=== PATIENT | female | born 1960 | race Caucasian/White ===

== ENCOUNTER 2025-04-10 00:24 | Inpatient (IN) | payer MEDICAID, OTHER ==
[2025-04-10] VITALS (13 sets, daily range): BP systolic 115–174; BP diastolic 57–80; PULSE 66–77; RESP 17–20; TEMP 35.9–36.9; O2SAT 96–100
[~2025-04-10] VITALS: Ht 162.6 cm; Wt 57.2 kg
[2025-04-10 02:23] LABS: HEMATOCRIT. 29.0 % (42.0-52.0); HEMOGLOBIN. 9.2 g/dL (14.0-18.0); MEAN PLATELET VOLUME 7.8 fl (7.4-10.4); PLATELET 228 x1000/uL (130-400); RED BLOOD CELL COUNT 3.16 mill/uL (4.7-6.1); RED CELL DISTRIBUTION WIDTH 15.7 % (11.6-14.6)
[2025-04-10 02:28] LABS: INR 1.0
[2025-04-10 02:31] LABS: CREATININE 4.9 mg/dL (0.6-1.3)
[2025-04-10 02:32] LABS: UREA NITROGEN BLOOD 47 mg/dL (9-23)
[2025-04-10 02:33] LABS: ASPARTATE AMINOTRANSFERASE 29 IU/L (<34); BILIRUBIN DIRECT 0.1 mg/dL (<=3.0)
[2025-04-10 02:34] LABS: BILIRUBIN TOTAL 0.3 mg/dL (0.1-1.0); PROTEIN TOTAL 7.6 g/dL (6.0-8.3)
[2025-04-10] MEDS: KETOROLAC 15MG/ML VIAL IV ONE (02:38)
[2025-04-10] MEDS: MORPHINE SULFATE 4 MG/ML INJ (FOR IV/IM USE) IV ONE (02:38)
[2025-04-10] MEDS: SODIUM CHLORIDE 0.9% 1,000 ML IV ONE (02:38)
[2025-04-10] MEDS ORDERED: MAGNESIUM/ALUMINUM HYDROXIDE/SIMETHICONE 30ML UDC PO PRN (06:15)
[2025-04-10] MEDS ORDERED: ONDANSETRON HCL 4MG/2ML INJ IV PRN (06:15)
[2025-04-10] MEDS ORDERED: ACETAMINOPHEN 325MG TABLET PO PRN (06:15)
[2025-04-10 08:19] LABS: BAND% 1.0 % (1.0-6.0); EOSINOPHILS % MANUAL 1.0 % (0.0-5.0); LYMPHOCYTES % MANUAL 5.0 % (20.0-50.0); MONOCYTES % MANUAL 3.0 % (2.0-8.0); NEUTROPHILS % MANUAL 90.0 % (45.0-75.0); PLATELET ESTIMATE NORMAL
[2025-04-10 08:38] LABS: HEPATITIS A AB IGM NEGATIVE (Negative); HEPATITIS B CORE AB IGM NEGATIVE (Negative)
[2025-04-10 08:39] LABS: HEPATITIS C AB NON REACTIVE (Neg) (Negative)
[2025-04-10] MEDS: PIPERACILLIN/TAZO 3.375G/50ML 50 ML IV SCH (09:11)
[2025-04-10] MEDS: ENOXAPARIN 30MG/0.3ML SYR SUBCUT SCH (09:11)
[2025-04-10] MEDS: CLONIDINE 0.1MG TABLET PO PRN (09:12)
[2025-04-10] MEDS ORDERED: APIX5TAB MT (15:49)
[2025-04-10] MEDS ORDERED: ACET650S27 ORI (15:50)
[2025-04-10] MEDS ORDERED: AMLO10TA80 MT (15:50)
[2025-04-10] MEDS: ACETAMINOPHEN 325MG TABLET PO PRN (18:28)
[2025-04-11] VITALS (14 sets, daily range): BP systolic 142–169; BP diastolic 57–87; PULSE 69–78; RESP 18–20; TEMP 35.8–37; O2SAT 96–100
[2025-04-11 07:19] LABS: BASOPHILS % 0.5 % (0.0-2.0); EOSINOPHILS % 1.3 % (0.0-5.0); HEMATOCRIT. 29.6 % (42.0-52.0); HEMOGLOBIN. 9.4 g/dL (14.0-18.0); LYMPHOCYTES % 7.3 % (20.0-50.0); MEAN PLATELET VOLUME 8.0 fl (7.4-10.4); MONOCYTES % 4.3 % (2.0-8.0); NEUTROPHILS % 86.6 % (40.0-76.0); PLATELET 209 x1000/uL (130-400); RED BLOOD CELL COUNT 3.18 mill/uL (4.7-6.1); RED CELL DISTRIBUTION WIDTH 15.7 % (11.6-14.6)
[2025-04-11 07:25] LABS: UREA NITROGEN BLOOD 49 mg/dL (9-23)
[2025-04-11 07:29] LABS: ASPARTATE AMINOTRANSFERASE 19 IU/L (<34); PROTEIN TOTAL 7.2 g/dL (6.0-8.3)
[2025-04-11 07:30] LABS: BILIRUBIN DIRECT 0.2 mg/dL (<=3.0); BILIRUBIN TOTAL 0.5 mg/dL (0.1-1.0); PHOSPHORUS 6.1 mg/dL (2.5-4.9)
[2025-04-11 09:06] LABS: CREATININE 5.5 mg/dL (0.6-1.3)
[2025-04-11] MEDS ORDERED: DEXTROSE 50% WATER 50ML SYRINGE IV PRN (11:30)
[2025-04-11] MEDS: BLOOD SUGAR DIAGNOSTIC STRIP TEST SCH (12:10)
[2025-04-11] MEDS: INSULIN LISPRO 100 UNITS/ML SUBCUT SCH (12:40)
[2025-04-11 13:43] LABS: CLARITY URINE CLOUDY (CLEAR); COLOR URINE YELLOW (YELLOW); GLUCOSE URINE 2+ (NEGATIVE); KETONES URINE NEGATIVE (NEGATIVE); LEUKOCYTE ESTERASE URINE NEGATIVE (NEGATIVE); NITRITE URINE NEGATIVE (NEGATIVE); OCCULT BLOOD URINE NEGATIVE (NEGATIVE); PH URINE 6.5 (4.5-8.0); PROTEIN URINE 4+ (NEGATIVE); SPECIFIC GRAVITY URINE 1.021 (1.005-1.030); UROBILINOGEN URINE 0.2 E.U./dL (0.2-1.0)
[2025-04-11 13:52] LABS: *AMPHETAMINES SCREEN URINE NEGATIVE (NEGATIVE); *BARBITURATES SCREEN URINE NEGATIVE (NEGATIVE); *BENZODIAZEPINES SCREEN URINE NEGATIVE (NEGATIVE); *COCAINE SCREEN URINE NEGATIVE (NEGATIVE); CANNABINOID URINE SCREEN NEGATIVE (NEGATIVE); ECSTASY MDMA SCREEN URINE NEGATIVE (NEGATIVE); METHADONE URINE SCREEN NEGATIVE (NEGATIVE); OPIATES URINE SCREEN PRESUMPTIVE POSITIVE (NEGATIVE); PHENCYCLIDINE URINE SCREEN NEGATIVE (NEGATIVE)
[2025-04-11 14:35] LABS: RBC URINE 0-2 /hpf (0-2); SQUAMOUS EPITHELIAL CELL URINE 2+ /lpf (RARE/1+)
[2025-04-11 14:37] LABS: BACTERIA URINE TRACE; YEAST URINE NONE SEEN
[2025-04-11] MEDS: TRAMADOL 50MG TABLET PO PRN (18:47)
[2025-04-12] VITALS: BP 140/60; PULSE 78; RESP 20; TEMP 36.1; O2SAT 100
[2025-04-12 04:00] VITALS: BP 139/60; PULSE 79; RESP 20; TEMP 36.7; O2SAT 100
[2025-04-12 08:17] VITALS: BP 140/75; PULSE 76; RESP 18; TEMP 35.7; O2SAT 99
[2025-04-12 12:00] VITALS: RESP 18; O2SAT 100
[2025-04-12 13:22] LABS: PLATELET 229 x1000/uL (130-400); RED BLOOD CELL COUNT 3.10 mill/uL (4.2-5.4); RED CELL DISTRIBUTION WIDTH 15.8 % (11.6-14.6)
[2025-04-12 13:47] LABS: CREATININE 4.6 mg/dL (0.6-1.0); UREA NITROGEN BLOOD 41.0 mg/dL (9-23)
[2025-04-12 14:42] LABS: TROPONIN I HIGH SENSITIVITY 56 ng/L (3.0-34)
[2025-04-12] MEDS ORDERED: PHENYLEPHRINE HCL 10MG/ML 1ML IV ONE (15:46)
[2025-04-12] MEDS ORDERED: PROPOFOL 200MG/20ML VIAL IV ONE (15:46)
[2025-04-12] MEDS ORDERED: FENTANYL CITRATE/PF 50MCG/ML 2ML VIAL ONE (15:46)
[2025-04-12] MEDS ORDERED: ETOMIDATE 2MG/ML 10ML VIAL IV ONE (15:46)
[2025-04-12] MEDS ORDERED: EPHEDRINE SULFATE 50MG/ML VIAL ONE (15:47)
[2025-04-12] MEDS ORDERED: DEXAMETHASONE 4MG/ML 1ML VIAL ONE (15:47)
[2025-04-12] MEDS ORDERED: LIDOCAINE HCL 1% 10 MG/ML 10ML VIAL ONE (15:47)
[2025-04-12] MEDS ORDERED: ONDANSETRON HCL 4MG/2ML INJ ONE (15:47)
[2025-04-12] MEDS ORDERED: ACETAMINOPHEN 1000MG/100ML 100 ML IV ONE (15:53)
[2025-04-12] MEDS ORDERED: HYDRALAZINE 20MG/ML VIAL IV PRN ×2 (16:00)
[2025-04-12] MEDS ORDERED: LABETALOL 5MG/ML 4ML INJ IV PRN (16:00)
[2025-04-12] MEDS ORDERED: ONDANSETRON HCL 4MG/2ML INJ IV PRN (16:00)
[2025-04-12] MEDS ORDERED: HYDROMORPHONE HCL/PF 1MG/ML INJ IV PRN (16:00)
[2025-04-12] MEDS ORDERED: HYDROMORPHONE HCL/PF 1MG/ML INJ ONE (16:32)
[2025-04-12 20:00] VITALS: BP 150/71; PULSE 79; RESP 18; TEMP 36.1; O2SAT 99
[2025-04-12] MEDS: ASPIRIN 325MG EC TABLET PO SCH (22:08)
[2025-04-12] MEDS: CEFAZOLIN 1000MG PREMIX 50 ML IV SCH (22:28)
[2025-04-13] VITALS (11 sets, daily range): BP systolic 135–175; BP diastolic 41–87; PULSE 65–79; RESP 17–18; TEMP 36.4–36.7; O2SAT 97–100
[2025-04-13] MEDS: MORPHINE SULFATE 4 MG/ML INJ (FOR IV/IM USE) IV PRN (03:12)
[2025-04-13 07:22] LABS: HEMATOCRIT. 29.0 % (36.0-48.0); HEMOGLOBIN. 9.2 g/dL (12.0-16.0); MEAN PLATELET VOLUME 7.7 fl (7.4-10.4); PLATELET 248 x1000/uL (130-400); RED BLOOD CELL COUNT 3.14 mill/uL (4.2-5.4); RED CELL DISTRIBUTION WIDTH 15.3 % (11.6-14.6)
[2025-04-13 07:34] LABS: UREA NITROGEN BLOOD 45.0 mg/dL (9-23)
[2025-04-13 08:06] LABS: CREATININE 5.1 mg/dL (0.6-1.0)
[2025-04-13 16:30] LABS: PLATELET 289 x1000/uL (130-400); RED BLOOD CELL COUNT 2.97 mill/uL (4.2-5.4); RED CELL DISTRIBUTION WIDTH 15.4 % (11.6-14.6)
[2025-04-13 16:53] LABS: TROPONIN I HIGH SENSITIVITY 41 ng/L (3.0-34)
[2025-04-13 20:56] LABS: LYMPHOCYTES % MANUAL 4.0 % (20.0-60.0); MONOCYTES % MANUAL 8.0 % (2.0-8.0); NEUTROPHILS % MANUAL 88.0 % (45.0-75.0); PLATELET ESTIMATE NORMAL
[2025-04-14] VITALS: BP 139/54; PULSE 76; RESP 18; TEMP 36.6; O2SAT 98
[2025-04-14 04:00] VITALS: BP 142/61; PULSE 78; RESP 17; TEMP 36.4; O2SAT 97
[2025-04-14 07:52] LABS: BASOPHILS % 0.6 % (0.0-2.0); EOSINOPHILS % 4.4 % (0.0-5.0); HEMATOCRIT. 27.2 % (36.0-48.0); HEMOGLOBIN. 8.7 g/dL (12.0-16.0); LYMPHOCYTES % 17.2 % (20.0-50.0); MEAN PLATELET VOLUME 7.9 fl (7.4-10.4); MONOCYTES % 8.3 % (2.0-8.0); NEUTROPHILS % 69.5 % (40.0-76.0); PLATELET 271 x1000/uL (130-400); RED BLOOD CELL COUNT 2.95 mill/uL (4.2-5.4); RED CELL DISTRIBUTION WIDTH 15.6 % (11.6-14.6)
[2025-04-14 07:57] LABS: CREATININE 4.6 mg/dL (0.6-1.0)
[2025-04-14 07:58] LABS: UREA NITROGEN BLOOD 41 mg/dL (9-23)
[2025-04-14 08:00] VITALS: BP 159/64; PULSE 66; RESP 20; TEMP 36.4; O2SAT 99
[2025-04-14 08:00] LABS: PHOSPHORUS 5.7 mg/dL (2.5-4.9)
[2025-04-14 12:00] VITALS: BP 143/67; PULSE 76; RESP 19; TEMP 36.4; O2SAT 99
[2025-04-14 16:00] VITALS: BP 138/69; PULSE 78; RESP 20; TEMP 36.3; O2SAT 98
[2025-04-14 20:00] VITALS: BP 158/65; PULSE 69; RESP 20; TEMP 36.4; O2SAT 92
[2025-04-15] VITALS (13 sets, daily range): BP systolic 135–168; BP diastolic 52–85; PULSE 72–78; RESP 16–18; TEMP 36.1–37; O2SAT 96–100
[2025-04-15 06:56] LABS: BASOPHILS % 0.6 % (0.0-2.0); EOSINOPHILS % 4.7 % (0.0-5.0); HEMATOCRIT. 27.2 % (36.0-48.0); HEMOGLOBIN. 8.8 g/dL (12.0-16.0); LYMPHOCYTES % 11.2 % (20.0-50.0); MEAN PLATELET VOLUME 7.6 fl (7.4-10.4); MONOCYTES % 7.0 % (2.0-8.0); NEUTROPHILS % 76.5 % (40.0-76.0); PLATELET 294 x1000/uL (130-400); RED BLOOD CELL COUNT 2.94 mill/uL (4.2-5.4); RED CELL DISTRIBUTION WIDTH 15.4 % (11.6-14.6)
[2025-04-15] MEDS ORDERED: NALOXONE HCL 0.4MG/ML VIAL IV PRN (15:15)
[2025-04-15] MEDS: SEVELAMER CARBONATE 800 MG TABLET PO SCH (18:49)
[2025-04-16] VITALS: BP 140/60; PULSE 77; RESP 18; TEMP 36.7; O2SAT 98
[2025-04-16 04:00] VITALS: BP 163/75; PULSE 71; RESP 18; TEMP 36.1; O2SAT 98
[2025-04-16 08:00] VITALS: BP 158/61; PULSE 71; RESP 18; TEMP 35.9; O2SAT 97
[2025-04-16] MEDS ORDERED: POLYMYXIN B SULFATE 500000 UNITS/VIAL ONE (08:59)
[2025-04-16] MEDS ORDERED: VANCOMYCIN HCL 1GM VIAL ONE (08:59)
[2025-04-16] MEDS ORDERED: FENTANYL CITRATE/PF 50MCG/ML 2ML VIAL ONE (09:03)
[2025-04-16] MEDS ORDERED: PROPOFOL 200MG/20ML VIAL IV ONE (09:04)
[2025-04-16] MEDS ORDERED: MIDAZOLAM HCL 2 MG/2 ML VIAL ONE (09:04)
[2025-04-16] MEDS ORDERED: LABETALOL 5MG/ML 4ML INJ IV PRN (09:45)
[2025-04-16] MEDS ORDERED: HYDRALAZINE 20MG/ML VIAL IV PRN ×2 (09:45)
[2025-04-16] MEDS ORDERED: FAMOTIDINE 20MG/2ML VIAL IV PRN (09:45)
[2025-04-16] MEDS ORDERED: MEPERIDINE HCL/PF 25MG/ML CPJ IV PRN (09:45)
[2025-04-16] MEDS ORDERED: ONDANSETRON HCL 4MG/2ML INJ IV PRN (09:45)
[2025-04-16] MEDS: ACETAMINOPHEN 1,000MG/100ML PREMIX IV PRN (10:04)
[2025-04-16] MEDS: HYDROMORPHONE HCL/PF 1MG/ML INJ IV PRN (10:06)
[2025-04-16 12:00] VITALS: BP 158/75; PULSE 72; RESP 18; TEMP 36.4; O2SAT 99
[2025-04-16 16:00] VITALS: BP 151/69; PULSE 71; RESP 18; TEMP 36.3; O2SAT 98
[2025-04-16 20:00] VITALS: BP 131/53; PULSE 70; RESP 18; TEMP 36.9; O2SAT 97
[2025-04-17] VITALS (11 sets, daily range): BP systolic 125–170; BP diastolic 50–82; PULSE 63–84; RESP 18–20; TEMP 36–36.9; O2SAT 98–100
[2025-04-17 06:30] LABS: CREATININE 4.9 mg/dL (0.6-1.0)
[2025-04-17 06:32] LABS: UREA NITROGEN BLOOD 33.0 mg/dL (9-23)
[2025-04-17] MEDS: TRAMADOL 50MG TABLET PO PRN (06:36)
[2025-04-17 06:48] LABS: BASOPHILS % 0.4 % (0.0-2.0); EOSINOPHILS % 1.6 % (0.0-5.0); HEMATOCRIT. 22.2 % (36.0-48.0); HEMOGLOBIN. 7.1 g/dL (12.0-16.0); LYMPHOCYTES % 8.3 % (20.0-50.0); MEAN PLATELET VOLUME 7.4 fl (7.4-10.4); MONOCYTES % 6.5 % (2.0-8.0); NEUTROPHILS % 83.2 % (40.0-76.0); PLATELET 359 x1000/uL (130-400); RED BLOOD CELL COUNT 2.39 mill/uL (4.2-5.4); RED CELL DISTRIBUTION WIDTH 15.3 % (11.6-14.6)
[2025-04-17] MEDS ORDERED: AMLO10TA80 MT (13:35)
[2025-04-17] MEDS ORDERED: APIX5TAB MT (13:35)
[2025-04-17] MEDS ORDERED: TRAM50TA3 MT (13:35)
[2025-04-17] MEDS: DIPHENHYDRAMINE 25MG CAPSULE PO PRN (16:15)
== END 2025-04-17 19:19 | disposition home health service (06) | DRG 308 ==
LOC: ER 00:24 → EDSEX 04:00 → 8WST 04:00 → EDBEDREQTM 04:16 → EDBEDREQ 04:16 → ENRESERV 14:15 → CANRESERV 14:15
PROVIDERS: ADMIT Student in an Organized Health Care Education/Training Program; ATTEND Student in an Organized Health Care Education/Training Program
PROC: 5A1D70Z Performance of Urinary Filtration, Intermittent, Less than 6 Hours Per Day (ICD-10-PCS; 2025-04-10)
PROC: 5A1D70Z Performance of Urinary Filtration, Intermittent, Less than 6 Hours Per Day (ICD-10-PCS; 2025-04-11)
PROC: 0QS704Z Reposition Left Upper Femur with Internal Fixation Device, Open Approach (ICD-10-PCS; principal; 2025-04-12)
PROC: 5A1D70Z Performance of Urinary Filtration, Intermittent, Less than 6 Hours Per Day (ICD-10-PCS; 2025-04-13)
PROC: 5A1D70Z Performance of Urinary Filtration, Intermittent, Less than 6 Hours Per Day (ICD-10-PCS; 2025-04-15)
PROC: 0QB70ZZ Excision of Left Upper Femur, Open Approach (ICD-10-PCS; 2025-04-16)
PROC: 5A1D70Z Performance of Urinary Filtration, Intermittent, Less than 6 Hours Per Day (ICD-10-PCS; 2025-04-17)
DX: S72.092A Other fracture of head and neck of left femur, initial encounter for closed fracture (principal); J69.0 Pneumonitis due to inhalation of food and vomit; I12.0 Hypertensive chronic kidney disease with stage 5 chronic kidney disease or end stage renal disease; N18.6 End stage renal disease; D64.9 Anemia, unspecified; E11.22 Type 2 diabetes mellitus with diabetic chronic kidney disease; Z99.2 Dependence on renal dialysis; Z79.01 Long term (current) use of anticoagulants; I07.1 Rheumatic tricuspid insufficiency; E87.70 Fluid overload, unspecified; W18.2XXA Fall in (into) shower or empty bathtub, initial encounter; E11.40 Type 2 diabetes mellitus with diabetic neuropathy, unspecified; E11.51 Type 2 diabetes mellitus with diabetic peripheral angiopathy without gangrene; E78.5 Hyperlipidemia, unspecified; S20.412A Abrasion of left back wall of thorax, initial encounter; Q66.70 Congenital pes cavus, unspecified foot; Y93.E1 Activity, personal bathing and showering; Z89.422 Acquired absence of other left toe(s); Z91.119 Patient's noncompliance with dietary regimen due to unspecified reason; Z91.158 Patient's noncompliance with renal dialysis for other reason; Z95.0 Presence of cardiac pacemaker; Y92.89 Other specified places as the place of occurrence of the external cause; Y99.8 Other external cause status
CPT/HCPCS: 36415; 71045; 72170; 72192; 73502; 73630; 73700; 76000; 80048; 80076; 80305; 81003; 82962; 83036; 83735; 84100; 84484; 85025; 85027; 86705; 86709; 86850; 86900; 87340; 90935; 93005; 93306; 93923; 93970; 96361; 96374; 96375; 97116; 97162; 97530; 99285; A4615; J0690; J1100; J1171; J1650; J1815; J1885; J2003; J2250; J2270; J2371; J2405; J2543; J2704; J3010; J3373; J3490; J7030; Q0163; C1713; J0131